=== PATIENT | female | born 2000 | race Caucasian/White ===

== ENCOUNTER 2021-12-03 15:48 | Emergency (ER) | payer OTHER, SELFPAY ==
[2021-12-03 15:55] VITALS: BP 122/66; PULSE 72; RESP 18; TEMP 37.7; O2SAT 100
--- NOTE | 2021-12-03 16:51 | ED.URI ---
HPI - URI/Sore Throat General Chief Complaint: Upper Respiratory Infection Stated Complaint: Sore Throat/Congestion Source: patient Mode of arrival: ambulatory Limitations: no limitations History of Present Illness HPI Narrative: 21-year-old female presented for complaint of sinus pressure and congestion, body aches, associated cough, shortness of breath with exertion, and occasional wheezing. She denies nausea, vomiting, fever or chills. She is taking Tylenol Cold for symptoms. She is not vaccinated for Covid. Endorses sick contacts about 1 week ago. MD elicited complaint: cough and sore throat Related Data Home Medications Medication Instructions Recorded Confirmed levonorgestrel [Mirena] 1 insert INTRAUTERINE ONCE 12/03/21 12/03/21 Allergies Allergy/AdvReac Type Severity Reaction Status Date / Time No Known Allergies Allergy Verified 12/03/21 16:14 Review of Systems Review of Systems: CONSTITUTIONAL: endorses body aches, denies fever, chills. EYES: Denies visual changes, redness, or discharge. ENT: endorses rhinorrhea, congestion, sore throat, denies otalgia. CARDIOVASCULAR: Denies chest pain, palpitations, or edema. RESPIRATORY: endorses cough and carmen . GASTROINTESTINAL: Denies abdominal pain, nausea, vomiting, or diarrhea. SKIN: Denies rash, itching, or wounds. MUSCULOSKELETAL: Denies back pain, joint pain, or myalgia. NEUROLOGIC: Denies headache, numbness, tingling, or weakness. PSYCH: Denies depression or anxiety. PMFSH Comments At time of signature, I have reviewed and agree with nursing past medical, surgical, social and family history unless otherwise noted. Please see nursing chart for further information. There is no relevant family history pertinent to the presenting complaint Exam Narrative: GENERAL: Ill appearing, no acute distress. HEAD: Normocephalic EYES: PERRLA, conjunctivae clear ENT: Mucous membranes moist. TM pearly perry with dull light reflex bilaterally, canal erythematous; no tragal tenderness. Oropharynx erythematous without lesions. Tonsils enlarged and without exudate, no drooling, no hoarseness, no trismus, uvula midline. NECK: Supple. No lymphadenopathy CHEST: Clear to auscultation, breath sounds equal. No wheezing, rhonchi, rales, or stridor. No respiratory distress, speaks in full sentences. HEART: Regular rate and rhythm. No murmur heard. SKIN: Warm, dry, no rash. NEURO: Alert and oriented x3. PSYCH: Normal mood and affect Course Course Emergency Course: Covid neg, strep neg Patient is aware of diagnosis, understands and agrees to treatment plan. Anticipatory guidance given. Patient agrees to follow-up as directed and is aware of reasons to seek care at the emergency department. Portions of this record may have been created with voice recognition software Level of Care: Express Care Visit Vital Signs Vital signs: Vital Signs Temperature 100 F H 12/03/21 15:55 Pulse Rate 72 12/03/21 15:55 Respiratory Rate 18 12/03/21 15:55 Blood Pressure 122/66 12/03/21 15:55 Pulse Oximetry 100 12/03/21 15:55 Temperature 100 F H 12/03/21 15:55 Pulse Rate 72 12/03/21 15:55 Respiratory Rate 18 12/03/21 15:55 Blood Pressure 122/66 12/03/21 15:55 Pulse Oximetry 100 12/03/21 15:55 MDM - URI/Sore Throat Differential Diagnosis Differential diagnosis: Likely upper respiratory infection, sinusitis and viral infection Lab Data Attestation: I reviewed the patient's lab results. Labs: Lab Results 12/03/21 Range/Units 16:05 POC SARS CoV-2 Ag Negative (Negative) Strep Screen Presumptive Negative *(Reference Range: Negative)* Discharge Plan Discharge Clinical Impression: Upper respiratory infection, Encounter for laboratory testing for COVID-19 virus Patient Disposition: Home, Self-Care Condition: Stable Instructions: Antibiotic Form, Upper Respiratory Infection (ED
[2021-12-04 22:39] LABS: SARS-CoV-2 RNA PCR Negative
== END 2021-12-03 17:00 | disposition home or self-care (01) ==
PROVIDERS: Emergency Provider Nurse Practitioner Family
DX: J06.9 Acute upper respiratory infection, unspecified (principal); Z20.822 Contact with and (suspected) exposure to COVID-19
CPT/HCPCS: 87081; 87426; 87880; 99213; C9803; G0463; U0003; U0005